=== PATIENT | male | born 1950 | race Caucasian/White ===

== ENCOUNTER 2023-12-10 17:14 | Emergency (ER) | payer BC, MEDICARE, SELFPAY ==
[2023-12-10 17:18] VITALS: BP 150/83
--- NOTE | 2023-12-10 17:59 | ED.MUSCINJ ---
HPI-Injury
General
Chief Complaint: Fall
Source: patient
Time Seen by Provider: 12/10/23 17:49
Travel History
Have you had any contact with someone who has COVID-19?: No
Do you have any symptoms of coronavirus? Fever > 100 degrees, chills, cough, shortness of breath, sore throat, loss of taste or smell, muscle aches, or headache?: No
History of Present Illness-Injury
Initial Injury comments:
73-year-old male presents after a fall off of a stepstool. He fell off of 1 step stepstool backwards and onto his right side. His head then flung back and hit the back of his head against the floor. No loss conscious. He notes pain slightly to
the back of the head the right ribs and the right posterior hip and pelvis. He is having difficulty bearing weight on the right leg. No anticoagulants. The medicine list on that. With Eliquis however he does not currently take this
Past History
Past History
ED Past Medical History: Asthma and Other (Prostate)
ED Past Surgical History: Urological
Social History
Tobacco: Former smoker
Personal:
Living: with family
Employment: Employed
Phy Exam
Physical Exam
Physical Exam:
General: Well-appearing male no acute respiratory distress
HEENT: Normocephalic no scalp abrasion hematoma pupils equal round reactive to light
Heart: Regular rate and rhythm no murmurs
Lungs: Clear to auscultation bilaterally no wheezing
Musculoskeletal exam: Spine is nontender over the midline however he is tender over the right posterior sacrum the right anterior lateral ribs are also tender without step-off or deformity good range of motion passively of the hip without deformity
Neurologic exam: Alert and oriented no facial asymmetry or slurred speech
Injury Course
Orders/Labs/Results
Orders:
Orders
12/10/23 17:58
CT Head W/o Iv Contrast Urgent
Comment:
Reason For Exam: fall
CR Pelvis - 1 Or 2 Views Urgent
Comment:
Reason For Exam: fall
CR Ribs-right 3 Vw W/pa Chest* Urgent
Comment:
Reason For Exam: fall
MDM/Problems Addressed
Differential Diagnosis Includes:
Mechanical fall. Head strike with right rib pain and posterior pelvis pain. X-rays of the ribs and pelvis pending to the head pending
*Critical Care Note
Total Time (30-74mins, 75-104mins- exclusive of procedures): Not Applicable
Update Note
Update Note:
I personally visualized x-rays of the ribs and pelvis as well as a CT of the head. All these are without acute traumatic injuries. Patient reassured. Suspect underlying contusion/muscular strain. Recommended continued warm compresses Medicare
needed at home. Stable for discharge
ED Attending Note
-
Portions of this chart may have been created with voice recognition software.� Occasional wrong word or��sound alike� substitutions may have occurred due to the inherent limitations of voice recognition software.
Discharge Plan
Departure
Patient Disposition: Home (Routine Discharge)
Date of Disposition: 12/10/23
Time of Disposition: 20:13
Patient with high blood pressure during this ER visit?: No
Discharge Problem:
Contusion
Prescriptions:
No Action
lisinopril 20 MG tablet
20 mg PO DAILY
fexofenadine 180 MG tablet
180 mg PO DAILY
simvastatin 20 MG tablet
20 mg PO DAILY
Multivitamins 1 TAB tablet
1 tab PO DAILY
aspirin 81 MG tablet
81 mg PO DAILY
vitamin E 800 UNIT capsule
800 unit PO DAILY
cholecalciferol (vitamin D3) [Vitamin D3] 1,000 UNIT tablet
1,000 unit PO DAILY
Vitamin B12
2,000 mg PO DAILY
Vitamin C
500 mg PO DAILY
mupirocin 1 APPLIC ointment
1 applic topical QID Qty: 15 0RF
famotidine 20 MG tablet
20 mg PO DAILY
apixaban [Eliquis] 5 MG tablet
5 mg PO BID Qty: 90 3RF
diltiazem HCl 180 MG capsule,extended release 24hr
180 mg PO DAILY Qty: 30 0RF
levofloxacin 500 MG tablet
500 mg PO DAILY Qty: 7 0RF
diclofenac sodium 75 MG tablet,delayed release (DR/EC)
75 mg PO BID Qty: 10 0RF
diazepam [Valium] 10 MG tablet
10 mg PO Q8HPRN PRN (Reason: spasm) Qty: 10 0RF
Referrals:
César Minor MD [Family Provider] -
Activity Restrictions/Additional Instructions:
Rest. Use ibuprofen or Tylenol for pain. You may apply a warm compress to the area. Return if needed otherwise follow-up with family doctor
Interventions
Interventions:
*Risk Screen - Suicide Last Done: 12/10/23 17:19
*General Assessment Last Done: 12/10/23 17:19
*Neglect/Abuse Screening Last Done: 12/10/23 17:19
*ED COVID-19 Vaccine History Last Done: 12/10/23 17:19
ED-Musculoskeletal Assessment Last Done: 12/10/23 18:16
ED- Neurological Assessment Last Done: 12/10/23 18:16
ED-Skin Assessment Last Done: 12/10/23 18:17
== END 2023-12-10 20:45 | disposition home or self-care (01) ==
LOC: EMR 17:14
PROVIDERS: EMERGENCY PHYSICIAN Student in an Organized Health Care Education/Training Program; FAMILY PHYSICIAN Family Medicine
DX: S30.0XXA Contusion of lower back and pelvis, initial encounter (principal); S20.219A Contusion of unspecified front wall of thorax, initial encounter; S09.90XA Unspecified injury of head, initial encounter; R51.9 Headache, unspecified; W08.XXXA Fall from other furniture, initial encounter; J45.909 Unspecified asthma, uncomplicated; Z87.891 Personal history of nicotine dependence; Z79.82 Long term (current) use of aspirin; Z79.01 Long term (current) use of anticoagulants; Z88.1 Allergy status to other antibiotic agents; Z88.8 Allergy status to other drugs, medicaments and biological substances
CPT/HCPCS: 99284; 70450; 71101; 72170

== ENCOUNTER 2024-09-16 06:25 | Day surgery (SDC) | payer BC, MEDICARE, SELFPAY | END 2024-09-16 11:23 | disposition home or self-care (01) | LOC: GI 06:25 | PROVIDERS: ATTENDING PHYSICIAN Internal Medicine Gastroenterology | DX: Z12.11 Encounter for screening for malignant neoplasm of colon (principal); K64.8 Other hemorrhoids; K57.30 Diverticulosis of large intestine without perforation or abscess without bleeding; Z86.0101 Personal history of adenomatous and serrated colon polyps; R12 Heartburn; K31.7 Polyp of stomach and duodenum; K55.20 Angiodysplasia of colon without hemorrhage | CPT/HCPCS: 43251; 43239; G0105; 88305 ==